=== PATIENT | female | born 1955 | race African-American/Black ===

== ENCOUNTER 2017-07-29 10:04 | Emergency (ER) | payer MEDICAID ==
[~2017-07-29] VITALS: Ht 160 cm; Wt 59.9 kg
[2017-07-29] MEDS ORDERED: ONDANSETRON HCL 4 MG/2 ML VIAL IV ONE (10:30)
[2017-07-29] MEDS ORDERED: HYDROmorphone HCL 2 MG/ML VL IV ONE (10:30)
[2017-07-29] MEDS ORDERED: cloNIDine HCL 0.1 MG TAB PO ONE (10:30)
[2017-07-29 11:10] LABS: Basophils # (auto) 0 uL; Basophils % (auto) 0.3 % (0.0-2.0); CONDITION Y; DEFINITIVE SEE PRINTOUT; Eosinophils # (auto) 0.1 uL; Eosinophils % (auto) 1.7 % (0.0-7.0); Hematocrit 41.8 % (36.0-46.0); Hemoglobin 13.2 g/dL (12.2-16.2); Lymphocytes # (auto) 1.7 uL; Lymphocytes % (auto) 29.2 % (10.0-50.0); Mean Corpuscular Hemoglobin 22.2 pg (28.0-32.0); Mean Corpuscular Hgb Conc. 31.6 g/dL (32.0-36.0); Mean Corpuscular Volume 70.4 fL (80.0-100.0); Mean Platelet Volume 9.1 fL (7.4-10.4); Monocytes # (auto) 0.3 uL; Monocytes % (auto) 5.7 % (0.0-12.0); Neutrophils # (auto) 3.6 uL; Neutrophils % (auto) 63.1 % (37.0-80.0); Platelet Count (auto) 249 10^3/uL (140-450); Red Cell Distribution Width 15.8 % (11.6-16.0); White Blood Cell 5.7 10^3/uL (4.4-10.8)
[2017-07-29 11:42] LABS: Alkaline Phosphatase 101 U/L (45-117); Anion Gap 9 (5-15); Aspartate Aminotransferase 19 U/L (15-37); BUN/Creatinine Ratio 12.7; Bilirubin, Total 0.4 mg/dL (0.2-1.0); Blood Urea Nitrogen 10 mg/dL (7-18); Calcium 9.2 mg/dL (8.5-10.1); Carbon Dioxide 28 mmol/L (21-32); Chloride 103 mmol/L (98-107); GFR African American 95 mL/min; GFR Non-African American 79 mL/min; Glucose 99 mg/dL (74-106); Potassium 4.1 mmol/L (3.5-5.1); Sodium 140 mmol/L (136-145); Total Protein 8.1 g/dL (6.4-8.2)
[2017-07-29] MEDS ORDERED: PROMETHAZINE HCL 25 MG/ML 1ML IV ONE (13:15)
[2017-07-29 14:11] VITALS: BP 133/89
== END 2017-07-29 14:12 | disposition home or self-care (01) ==
LOC: ER 10:04
DX: I10 Essential (primary) hypertension (principal); R11.0 Nausea; Z91.14 Patient's other noncompliance with medication regimen; Z90.710 Acquired absence of both cervix and uterus; Z88.0 Allergy status to penicillin
CPT/HCPCS: 36415; 71020; 80053; 84484; 85025; 93005; 96374; 96375; 99285; J1170; J2405; J2550

== ENCOUNTER 2017-08-03 10:19 | Emergency (ER) | payer MEDICAID ==
[~2017-08-03] VITALS: Ht 160 cm; Wt 57.6 kg
[2017-08-03 11:28] LABS: Basophils # (auto) 0 uL; Basophils % (auto) 0.6 % (0.0-2.0); Eosinophils # (auto) 0.1 uL; Eosinophils % (auto) 0.9 % (0.0-7.0); Hematocrit 46.9 % (36.0-46.0); Hemoglobin 15.3 g/dL (12.2-16.2); Lymphocytes # (auto) 2.2 uL; Lymphocytes % (auto) 28.5 % (10.0-50.0); Mean Corpuscular Hemoglobin 22.5 pg (28.0-32.0); Mean Corpuscular Hgb Conc. 32.6 g/dL (32.0-36.0); Mean Corpuscular Volume 69.1 fL (80.0-100.0); Mean Platelet Volume 8.1 fL (7.4-10.4); Monocytes # (auto) 0.6 uL; Monocytes % (auto) 7.8 % (0.0-12.0); Neutrophils # (auto) 4.9 uL; Neutrophils % (auto) 62.2 % (37.0-80.0); Nucleated Red Blood Cells % 0.8 %; Platelet Count (auto) 279 10^3/uL (140-450); Red Cell Distribution Width 14.7 % (11.6-16.0); White Blood Cell 7.8 10^3/uL (4.4-10.8)
[2017-08-03 11:38] LABS: Albumin 4.5 g/dL (3.4-5.0); BUN/Creatinine Ratio 20.6; Bilirubin, Total 0.5 mg/dL (0.2-1.0); Calcium 10.2 mg/dL (8.5-10.1); Potassium 4.6 mmol/L (3.5-5.1); Total Protein 9.1 g/dL (6.4-8.2)
[2017-08-03] MEDS ORDERED: SODIUM CHLORIDE 0.9% 1,000 ML IV ONE (14:58)
[2017-08-03 17:21] VITALS: BP 143/104
== END 2017-08-03 17:26 | disposition home or self-care (01) ==
LOC: ER 10:19
DX: F41.9 Anxiety disorder, unspecified (principal); I10 Essential (primary) hypertension; Z90.710 Acquired absence of both cervix and uterus; Z88.0 Allergy status to penicillin; Z91.09 Other allergy status, other than to drugs and biological substances
CPT/HCPCS: 36415; 80053; 85025; 93005; 96360; 99285; J7030

== ENCOUNTER 2018-10-20 16:24 | Emergency (ER) | payer MEDICAID ==
[~2018-10-20] VITALS: Ht 160 cm; Wt 59.4 kg
[2018-10-20 17:14] LABS: Urine Bacteria NONE SEEN /hpf (None Seen); Urine Blood Negative /uL (Negative); Urine Mucus FEW (None Seen); Urine Specific Gravity 1.014 (1.001-1.035); Urine WBC <1 /hpf (0 - 5)
[2018-10-20 17:34] LABS: Basophils # (auto) 0 uL; Eosinophils # (auto) 0.2 uL; Monocytes # (auto) 0.5 uL; Platelet Count (auto) 317 10^3/uL (140-450)
[2018-10-20 17:35] LABS: Basophils % (auto) 0.4 % (0.0-2.0); Eosinophils % (auto) 3.3 % (0.0-7.0); Hematocrit 34.6 % (36.0-46.0); Hemoglobin 10.8 g/dL (12.2-16.2); Lymphocytes # (auto) 1.8 uL; Lymphocytes % (auto) 29.7 % (10.0-50.0); Mean Corpuscular Hemoglobin 21.2 pg (28.0-32.0); Mean Corpuscular Hgb Conc. 31.2 g/dL (32.0-36.0); Monocytes % (auto) 7.6 % (0.0-12.0); Neutrophils # (auto) 3.5 uL; Nucleated Red Blood Cells % 0.1 %; Red Blood Cells 5.09 10^6/uL (4.0-5.20); Red Cell Distribution Width 14.8 % (11.8-14.3)
[2018-10-20 17:47] LABS: INR 0.9 (0.9-1.15); Partial Thromboplastin Time 26.8 sec (23.78-33.04); Prothrombin Time 9.7 sec (9.27-12.13)
[2018-10-20 17:53] LABS: Albumin 3.7 g/dL (3.4-5.0); Calcium 8.8 mg/dL (8.5-10.1)
[2018-10-20 17:55] LABS: Bilirubin, Total 0.2 mg/dL (0.2-1.0); Total Protein 7.8 g/dL (6.4-8.2)
[2018-10-20] MEDS ORDERED: cefTRIAXone 1GM/50ML D5W 50 ML IV ONE (19:30)
[2018-10-20] MEDS ORDERED: metroNIDAZOLE 500MG/100ML 100 ML IV ONE (19:30)
[2018-10-20] MEDS ORDERED: cefTRIAXone SOD 1,000 MG VL ONE (19:41)
[2018-10-20] MEDS ORDERED: LIDOCAINE 1%HCL (LOCAL ANESTH) 10 ML MDV ONE (19:42)
[2018-10-20] MEDS ORDERED: cefTRIAXone W LIDOCAINE 1 GM IM IM ONE (19:45)
[2018-10-20] MEDS ORDERED: metroNIDAZOLE 500 MG TAB PO ONE (19:45)
[2018-10-20 19:55] VITALS: BP 122/86
== END 2018-10-20 20:44 | disposition home or self-care (01) ==
LOC: ER 16:29
DX: K52.9 Noninfective gastroenteritis and colitis, unspecified (principal); I10 Essential (primary) hypertension; Z90.710 Acquired absence of both cervix and uterus; Z88.0 Allergy status to penicillin
CPT/HCPCS: 36415; 74176; 80053; 81001; 85025; 85610; 85730; 96372; 99284; J0696; J2001